=== PATIENT | female | born 1970 | race Caucasian/White ===

== ENCOUNTER 2018-10-22 11:02 | Emergency (ER) | payer SELFPAY, MEDICAID | END 2018-10-22 14:02 | disposition home or self-care (01) | LOC: FTE 11:02 | DX: S50.11XA Contusion of right forearm, initial encounter (principal); S69.91XA Unspecified injury of right wrist, hand and finger(s), initial encounter; Y08.89XA Assault by other specified means, initial encounter | CPT/HCPCS: 29125; 99282-25 ==